=== PATIENT | female | born 1980 | race Caucasian/White ===

== ENCOUNTER 2017-01-18 14:15 | Emergency (ER) | payer OTHER ==
[~2017-01-18] VITALS: Ht 157.5 cm; Wt 59.1 kg
[~2017-01-18 14:15] MED LIST: DOCU-131 PO; FERR325T18 PO; IBUP-1222 PO; OXYC-302 PO; PREN-3 PO; VALA500T4 PO
[2017-01-18 14:19] VITALS: BP 104/74
[2017-01-18 15:23] LABS: HEMATOCRIT 44.4 % (34.6-47.8); HEMOGLOBIN 15.1 g/dL (11.7-16.4); WHITE BLOOD COUNT 5.8 x10^3/uL (3.4-10)
[2017-01-18 15:36] LABS: BLOOD UREA NITROGEN 15 mg/dL (7-18)
[2017-01-18 15:41] LABS: ASPARTATE AMINO TRANSFERASE 15 U/L (15-37)
[2017-01-18 15:47] LABS: HIV 1&2 ANTIBODY SCREEN Nonreactive (Nonreactive); HIV-1 p24 ANTIGEN Nonreactive (Nonreactive)
[2017-01-18 15:56] LABS: HEP B SURF. AB 54.3 mIU/mL (0.0-10.0)
== END 2017-01-18 15:46 | disposition home or self-care (01) ==
LOC: ED 15:27
DX: Z77.21 Contact with and (suspected) exposure to potentially hazardous body fluids (principal)
CPT/HCPCS: 36415; 80053; 85025; 86703; 86705; 86706; 86803; 87340; 87899; 99284; G0435